=== PATIENT | female | born 1985 | race Caucasian/White ===

== ENCOUNTER 2017-05-17 08:50 | Day surgery (SDC) | payer OTHER ==
[2017-05-13 14:43] VITALS: BMI 21.6
[2017-05-17] MEDS ORDERED: MIDAZOLAM HCL 2 MG/2 ML SINGLE DOSE VIAL ONE (09:49)
[2017-05-17] MEDS ORDERED: LIDOCAINE 1%/EPI 1:100000 (20 ML MULTI DOSE VIAL) ONE (09:51)
[2017-05-17] MEDS ORDERED: GENTAMICIN SO4 80 MG/2 ML VIAL ONE (09:52)
[2017-05-17] MEDS ORDERED: ceFAZolin SODIUM 1 GM VIAL ONE ×2 (09:52→10:34)
[2017-05-17] MEDS ORDERED: ONDANSETRON 4 MG/2 ML VIAL IVPUSH PRN (10:03)
[2017-05-17] MEDS ORDERED: oxyCODONE HCL 5 MG TABLET PO PRN (10:03)
[2017-05-17] MEDS ORDERED: LACTATED RINGERS SOLUTION 1,000 ML IV SCH (10:15)
[2017-05-17] MEDS ORDERED: PROPOFOL 20 ML ONE ×2 (10:22)
[2017-05-17] MEDS ORDERED: DEXAMETHASONE SOD PHOSPHATE 4 MG/1 ML VIAL ONE (10:38)
[2017-05-17] MEDS ORDERED: ONDANSETRON 4 MG/2 ML VIAL ONE ×2 (10:38→11:46)
[2017-05-17] MEDS ORDERED: BUPIVACAINE HCL/PF 0.5% (5MG/ML) 10 ML VIAL ONE (11:05)
[2017-05-17] MEDS ORDERED: ePHEDrine SULFATE 50 MG/1 ML AMPULE ONE (11:11)
--- NOTE | 2017-05-17 11:56 | OP ---
Operative Note - Note: Operative Date: 05/17/17 Pre-Operative Diagnosis: aquired chest wall deformity Operation: Bilaeral capsulectomy with implant exchange Implants: Silicone implants Post-Operative Diagnosis: Same as Pre-op Surgeon: Steve Elizabeth Career Counselor: Felicitas Morrison Anesthesia: Local, MAC Specimens Removed: Silicone implants, right breast capsule Estimated Blood Loss (mls): 20 Operative Report Dictated: Yes
[2017-05-17] MEDS ORDERED: PROMETHAZINE HCL 25 MG/1 ML VIAL ONE (13:31)
[2017-05-17] MEDS ORDERED: PROMETHAZINE HCL 25 MG/1 ML VIAL IVPUSH ONE (14:30)
[2017-05-17 15:23] VITALS: BP 110/60; PULSE 76; TEMP 98
--- NOTE | 2017-05-18 09:00 | OP ---
DATE OF OPERATION: 05/17/2017 SURGEON: [place] Elizabeth MD CNC TECHNICIAN SURGEON: Felicitas Morrison PA-C PREOPERATIVE DIAGNOSES: 1. Bilateral acquired chest wall deformity status post bilateral mastectomy. 2. Preoperative diagnosis of ruptured left breast implant on MRI. 3. Asymmetry of the chest wall and malposition of implants. POSTOPERATIVE DIAGNOSES: 1. Bilateral acquired chest wall deformity status post bilateral mastectomy. 2. Preoperative diagnosis of ruptured left breast implant on MRI. No evidence of rupture was seen on implant. 3. Asymmetry of the chest wall and malposition of implants. OPERATIVE PROCEDURE: 1. Right breast capsulectomy, removal and replacement of right breast implant. 2. Left breast capsulectomy, removal and replacement of left breast implant. 3. Right breast excisional biopsy of retroareolar tissue. OPERATIVE INDICATION: Patient is a young woman who presented after previous mastectomy prior with asymmetry of the reconstructed chest wall, discomfort on the left chest wall, and an MRI showing rupture of the left breast implant. The risks and benefits of surgical versus nonsurgical alternatives as well as material complications of the procedure were described to the patient preoperatively. The patient required replacement and capsulectomy of her implants due to a mass on the right breast corresponding to the retroareolar area, as well as rupture of the implants and need for exchange. The risks and benefits of surgical versus nonsurgical alternatives as well as the material complications including no surgery were discussed with the patient preoperatively. She agreed to the planned procedure. OPERATIVE PROCEDURE IN DETAIL: Patient was taken to the operating room, and after induction of general anesthesia, in supine position, both arms were extended and padded. Venodyne boots were placed. The entire chest wall, abdomen area was prepped with ChloraPrep solution over the entire extent, and after placement of sterile drapes in the usual fashion and a timeout, the patient was addressed. At this point, 1% local lidocaine anesthesia with 1:100,000 epinephrine was injected into the mastectomy scars, down through the skin to subcutaneous tissue. Once this was accomplished and carried out, attention was then turned to the right breast. An incision was made down through the skin to the subcutaneous tissue, through the subcutaneous tissue, down to the underlying implant and capsule. At this point, the capsule was opened and the implant removed and sent for pathologic diagnosis. At this point, an area in the retroareolar superior area was found on examination of the postareolar area. An incision was then made under optical magnification of 2.5 power down through the capsule to the underlying tissue. A block of tissue from the superior retroareolar area was located and excised. This was carried out using the electrocautery throughout, and hemostasis was meticulously obtained throughout. A portion of the capsule and this tissue was removed and sent for pathologic diagnosis to rule out carcinoma. Hemostasis was meticulously obtained in the retroareolar space, and then, a repair was carried out of the retroareolar area, suturing capsule to capsule with three 0 chromic sutures in interrupted fashion. Good approximation of the tissues was seen, and then, attention was turned to the left breast. At this point, incision was then made down through the skin to the subcutaneous tissue on the left mastectomy scar, through the subcutaneous tissue down to the underlying implant. The capsule was then opened and the implant removed. No rupture was seen on the left breast implant, and the pocket appeared to be intact. Copious irrigation of both pockets with triple-antibiotic solution was carried out over the entire extent. Once this was accomplished, the pockets were adjusted and capsulotomy was performed on the right and left side to accept the new implants, and at this point, an implant was chosen. A Sientra Style 107, 625-mL implant was chosen for the right breast pocket. This was placed into the pocket using a Peters funnel with a no-touch technique. Good shape and contour was seen, and the exact same implant was placed into the opposite breast. Copious irrigation of the wound with triple-antibiotic solution again was carried out. The wound was then closed in layers using 3-0 PDS on the capsule and repair of the capsule independently, and the deeper tissues were closed with interrupted 3-0 Biosyn and 4-0 Biosyn subcuticular suture. All wounds were dressed sterilely with Dermabond, Steri-Strips, and a compressive dressing. She was awakened, extubated, and transferred to the recovery room in satisfactory condition. She tolerated the procedure well. [place] ELIZABETH M.D. [id number]
--- NOTE | 2017-05-21 19:02 | PATH ---
Surgical Pathology Report Patient Name: XI ALEXANDER Med. Rec. #: [id number] /Age/Gender: 1985 (Age: 32) / F Account: [id number] Location: [facility] AMBULATORY Taken: 05/17/2017 Received: 05/17/2017 Reported: 05/21/2017 Physicians: Steve Elizabeth Specimen(s) Received A: RIGHT BREAST IMPLANT B: RIGHT BREAST RETROAREOLAR TISSUE AND CAPSULE C: LEFT BREAST IMPLANT D: LEFT BREAST CAPSULE Clinical History Status post breast mastectomy, BRCA+ Final Diagnosis A. IMPLANT, RIGHT BREAST, REMOVAL: IMPLANT, DESCRIBED (GROSS EXAMINATION ONLY). B. RETROAREOLAR TISSUE AND CAPSULE, RIGHT BREAST, EXCISION AND CAPSULECTOMY: FIBROUS CAPSULE AND BENIGN BREAST TISSUE. C. IMPLANT, LEFT BREAST, REMOVAL: IMPLANT, DESCRIBED (GROSS EXAMINATION ONLY). D. CAPSULE, LEFT BREAST, CAPSULECTOMY: FIBROUS CAPSULE. Electronically Signed Aria Hernandez M.D. Gross Description A. Received fresh labeled "right breast implant," is a 13.5 cm in diameter x 3.5 cm in depth clear, rubbery breast implant. No soft tissue is present. No sections are submitted, gross only. B. Received in formalin labeled "right breast retroareolar tissue and capsule," are 2 mari, irregular, unoriented portions of fibrous tissue measuring 1.0 x 0.6 x 0.2 cm and 2.2 x 1.2 x 0.5 cm. The specimens are sectioned and entirely submitted in one cassette. C. Received fresh labeled "left breast implant," is a 13.5 cm in diameter x 3.5 cm in depth clear, rubbery breast implant. No soft tissue is present. No sections are submitted, gross only. D. Received in formalin labeled "left breast capsule," is a 2.7 x 0.3 x 0.2 cm pink-mari, irregular portion of fibrous tissue, consistent with a portion of fibrous capsule. The specimen is submitted in toto in one cassette. 05/20/201705/20/2017
== END 2017-05-17 15:27 | disposition home or self-care (01) ==
LOC: FASU 08:50
PROVIDERS: ATTEND Plastic Surgery
PROC: 0HPT0JZ Removal of Synthetic Substitute from Right Breast, Open Approach (ICD-10-PCS; 2017-05-17)
PROC: 0HUV0JZ Supplement Bilateral Breast with Synthetic Substitute, Open Approach (ICD-10-PCS; 2017-05-17)
PROC: 0HBT0ZX Excision of Right Breast, Open Approach, Diagnostic (ICD-10-PCS; 2017-05-17)
PROC: 0HPU0JZ Removal of Synthetic Substitute from Left Breast, Open Approach (ICD-10-PCS; principal; 2017-05-17 10:47)
DX: M95.4 Acquired deformity of chest and rib (principal); Z90.13 Acquired absence of bilateral breasts and nipples; N65.1 Disproportion of reconstructed breast; T85.42XA Displacement of breast prosthesis and implant, initial encounter; Y83.8 Other surgical procedures as the cause of abnormal reaction of the patient, or of later complication, without mention of misadventure at the time of the procedure; Y92.89 Other specified places as the place of occurrence of the external cause; N60.31 Fibrosclerosis of right breast
CPT/HCPCS: 84703; 88300-TC; 88304-TC; 94760